=== PATIENT | male | born 1945 | race Caucasian/White ===

== ENCOUNTER 2017-04-06 08:36 | Inpatient (IN) | payer MEDICARE, BC ==
[2017-04-06] VITALS (31 sets, daily range): BP systolic 110–139; BP diastolic 52–78; PULSE 48–100; RESP 16–40; Ht 170.2 cm; Wt 65.3 kg
[~2017-04-06] VITALS: Ht 170.2 cm; Wt 65.3 kg
[2017-04-06] MEDS ORDERED: NIAC1000 PO (09:06)
[2017-04-06] MEDS ORDERED: LEVO137T24 PO (09:07)
[2017-04-06] MEDS ORDERED: TEST75GE TD (09:08)
[2017-04-06] MEDS ORDERED: LACTATED RINGER'S 1,000 ML IV* SCH (09:30)
[2017-04-06] MEDS ORDERED: CEFAZOLIN 2 GM/50 ML (PMX) 50 ML IVPB SCH (09:30)
[2017-04-06] MEDS ORDERED: TRAM50TA2 PO (09:50)
[2017-04-06] MEDS ORDERED: SURGIFOAM POWDER 1 GM KIT ONE (11:57)
[2017-04-06] MEDS ORDERED: GELATIN SIZE 100 SPONGE ONE (11:57)
[2017-04-06] MEDS ORDERED: CA CHLORIDE 10% 10 ML SYRINGE ONE (11:58)
[2017-04-06] MEDS ORDERED: THROMBIN 5000 UNIT VIAL ONE (11:58)
[2017-04-06] MEDS ORDERED: POLYMYXIN/BACITRACIN 1L IRRIG ONE (11:58)
[2017-04-06] MEDS ORDERED: BUPIVACAINE 0.25%/EPI (SDV) 30 ML INJ ONE (11:58)
--- NOTE | 2017-04-06 12:38 | HPN ---
Date/Time of Note Date/Time of Note DATE: 04/06/17 TIME: 12:37 Interval H&P Admission Note Pt. seen H&P reviewed: No system changes JULIA POTTER PA-C Apr 06, 2017 12:38
[2017-04-06] MEDS ORDERED: FENTAnyl 50 MCG/ML VIAL ONE ×2 (12:43→13:52)
[2017-04-06] MEDS ORDERED: LABETALOL HCL 20MG INJ ONE (13:10)
[2017-04-06] MEDS ORDERED: METOCLOPRAMIDE 10 MG INJ IV PRN (13:30)
[2017-04-06] MEDS ORDERED: HYDROmorphONE (0.2 MG/ML) 10ML SYG IV PRN ×3 (13:30)
[2017-04-06] MEDS ORDERED: MEPERIDINE 25 MG INJ IV PRN (13:30)
[2017-04-06] MEDS ORDERED: FENTAnyl 50 MCG/ML VIAL IV PRN (13:30)
[2017-04-06] MEDS ORDERED: hydrALAzine 20 MG INJ IV PRN (13:30)
[2017-04-06] MEDS ORDERED: LABETALOL HCL 20MG INJ IV PRN (13:30)
[2017-04-06] MEDS ORDERED: ONDANSETRON 4 MG INJ IV PRN ×2 (13:30→14:30)
[2017-04-06] MEDS ORDERED: DIPHENHYDRAMINE 50 MG INJ IV PRN ×2 (13:30→14:30)
[2017-04-06] MEDS ORDERED: SUCCINYLCHOLINE CHLORIDE 100 MG/5 ML SYG IV ONE (14:15)
[2017-04-06] MEDS ORDERED: ROCURONIUM 50 MG INJ ONE (14:15)
[2017-04-06] MEDS ORDERED: NEOSTIGMINE 3 MG/3 ML SYRINGE ONE (14:15)
[2017-04-06] MEDS ORDERED: LIDOCAINE 2% (SDV) 5 ML INJ ONE (14:15)
[2017-04-06] MEDS ORDERED: CEFAZOLIN 1 GM INJ ONE (14:15)
[2017-04-06] MEDS ORDERED: PROPOFOL 40 ML ONE (14:15)
[2017-04-06] MEDS ORDERED: GLYCOPYRROLATE 0.4 MG INJ ONE (14:15)
[2017-04-06] MEDS ORDERED: CEPASTAT LOZENGE MT PRN (14:30)
[2017-04-06] MEDS ORDERED: CEFAZOLIN 1 GM/50 ML (PMX) 50 ML IVPB SCH (14:30)
[2017-04-06] MEDS ORDERED: BISACODYL 10 MG SUPP PR PRN (14:30)
[2017-04-06] MEDS ORDERED: NALOXONE (0.4 MG/ML) INJ IV PRN (14:30)
[2017-04-06] MEDS ORDERED: ACETAMINOPHEN 325 MG TAB PO PRN (14:30)
[2017-04-06] MEDS ORDERED: AL HYDROX/MG HYDROX/SIMETH 30 ML CUP PO PRN (14:30)
[2017-04-06] MEDS ORDERED: ZOLPIDEM 5 MG TAB PO PRN (14:30)
[2017-04-06] MEDS ORDERED: CYCLOBENZAPRINE 10 MG TAB PO PRN (14:30)
[2017-04-06] MEDS ORDERED: HYDROmorphONE 1 MG/ML SYG IV PRN (14:30)
--- NOTE | 2017-04-06 14:31 | OPR ---
Date/Time of Note Date/Time of Note DATE: 04/06/17 TIME: 14:30 Operative Report Preoperative Diagnosis L4-5 HNP Postoperative Diagnosis L4-5 hnp Operation/Procedure Performed l4-5 extrafor discectomy Surgeon: GRISEL QUINTANILLA MD ophthalmology assistant: JULIA POTTER PA-C Anesthesia: general Estimated Blood Loss: 10 - 50 ml's Specimens disk Complications: None GRISEL QUINTANILLA MD Apr 06, 2017 14:31
[2017-04-06] MEDS: HYDROmorphONE 0.2 MG/ML PCA IV SCH (14:46)
[2017-04-06] MEDS ORDERED: ALBUTEROL/IPRATROPIUM (NEB) 3 ML AMP HHN PRN (15:00)
--- NOTE | 2017-04-06 15:24 | RADRPT ---
PROCEDURE: XR Chest. CLINICAL INDICATION: Cough. TECHNIQUE: Single frontal view of the chest was obtained. COMPARISON: None FINDINGS: The soft tissues are normal. There are degenerative osteophytes in the thoracic spine. The left ve ntricle is mildly enlarged. The cardiomediastinal silhouette and hilar structures are normal. The p ulmonary vasculature is normal. There are vascular calcifications in the aortic arch. There is patc hy infiltrate and atelectasis in the bases of the lungs. The left costophrenic angle is blunted. IMPRESSION: 1. There are areas of atelectasis and patchy infiltrates in the bases of the lungs suspicious for pn eumonia. 2. There is a small left pleural effusion. RPTAT:AAJJ Physician Abdi Date Time Electronically viewed and signed by Shad Bermudez Physician on 04/06/2017 15:24 /
--- NOTE | 2017-04-06 15:51 | RADRPT ---
PROCEDURE: Lateral view of the lumbosacral spine. CLINICAL INDICATION: Intraoperative planning. TECHNIQUE: A cross-table lateral view of the lumbar spine was performed. COMPARISON: No. FINDINGS: There is a needle along the lower 1/4 of the L3 spinous process. There is a second needle abutting the superior surface of the L5 spinous process. There is disk space narrowing and vacuum disk phenomenon at L2-3, L3-4 and L4-5. There is generaliz ed disk space narrowing at L5-S1. There is mild grade 1 anterolisthesis of L3 and L4. There is mil d anterolisthesis of L2 and L3. IMPRESSION: 1. Intraoperative radiographs with metal needles along the lower 1/4 of the L3 spinous process and abutting the superior surface of the L5 spinous process. 2. Osteoarthritis of the lumbar spine. RPTAT:AAJJ Physician Abdi Date Time Electronically viewed and signed by Physician Abdi on 04/06/2017 15:51 RAMY/
--- NOTE | 2017-04-06 15:52 | OPR ---
DATE OF OPERATION: 04/06/2017 PREOPERATIVE DIAGNOSIS: Right L4-L5 extraforaminal disk extrusion with radiculopathy. POSTOPERATIVE DIAGNOSIS: Right L4-L5 extraforaminal disk extrusion with radiculopathy. OPERATION PERFORMED: 1. Right L4-L5 extraforaminal microdiskectomy. 2. Lateral localizing film x2. 3. Use of operative microscope. 4. Intraoperative neuromonitoring (1.5 hours). 5. Epidural injection via catheter. PRIMARY SURGEON: Wilfredo Nix MD MINI BAR ATTENDANT: DENIA Carney NEED FOR HATCHERY EMPLOYEE: During this spinal surgical procedure, my warehouse assistant was used to retrac t and protect the spinal nerves and dural sac. My warehouse assistant also employed the suction catheters to evacuate blood from the surgical field to improve visualization of the neural structures. The eusebia tant was medically necessary to facilitate the completion of the surgery in a safe and expeditious m gary. [facility] [place] regulations, as well as hospital bylaws, preclude the use of non-license d health care personnel, such as operating room technicians, to perform these functions. FINDINGS: The patient had a large extruded extraforaminal disk herniation causing nerve root compro mise. ESTIMATED BLOOD LOSS: Less than 30 mL DRAINS: None. SPECIMENS: L4-5 disk. COMPLICATIONS OF PROCEDURES: None. ANESTHESIOLOGIST: Dr. Langley TYPE OF ANESTHESIA: General. INDICATIONS FOR PROCEDURE: This is a 72-year-old gentleman with right lumbosacral radiculopathy in the setting of a right-sided far lateral disk extrusion at L4-L5. He failed nonoperative measures; therefore, I recommended proceeding with the above-mentioned surgery. Preoperatively, we discussed the risks, benefits, and alternatives. He understood and wished to proceed. DESCRIPTION OF PROCEDURE IN DETAIL: The patient was identified in the preoperative holding area, [facility], taken to the operating room, where he was successfully placed under general an esthesia. Neuromonitoring leads were placed, sequential compressive devices were applied. Neuromon itoring was utilized during the procedure for 1.5 hours to include SSEP, MEP, and EMG. This was per formed by [employer]. Start time was 1 p.m. Closure time was 2:30 p.m. The patient was plac ed on the operative table in prone position over a Harley frame. All bony prominences were well pad ded. The back was then prepped and draped in the usual sterile fashion. Spinal needles were placed and lateral localizing films obtained to confirm the correct levels. Once this was confirmed, I in jected the skin and subcutaneous tissue with 0.25% Marcaine and epinephrine. An incision was then m ember over the L4-5 level. Incision was taken down to dorsal fascia which was incised with Bovie caut prieto. I then subperiosteally dissected the L4 lamina. Janette retractor was placed. Kerrison was pl aced in what was felt to be the L4 lamina and repeat lateral films obtained to confirm the correct l evels. Once this was confirmed, a right-sided hemilaminotomy was performed. Partial facetectomies were performed. Ligamentum flavum was then sharply dissected. Crystals from previous epidural inje ctions were encountered and removed. I decompressed the dura and neural foramina. Next, I identifi ed the annulus and performed an extraforaminal diskectomy. Large extruded fragments were identified . I then entered the disk space and removed medial fragments as well. Once this was done, all nerv e signals returned to normal. I irrigated the wound. Valsalva maneuver was performed, and there wa s no leak of CSF. Epidural was passed through which I injected 100 mcg of fentanyl. Anesthesiology amos peripheral blood which was spun down using the WaveConnex device and took the platelet-poor plas ma and mixed this with thrombin and injected this over the dura for hemostatic purposes. The retrac tors were removed, and I closed the deep fascia with #1 Vicryl stitch. I closed subcutaneous tissue with 2-0 Vicryl stitch. A 4-0 Monocryl closure was then performed. Microscope was taken off the f ield. Dermabond was applied. The patient was then awakened from anesthesia and taken to recovery r oom in stable condition. Lap, sponge, and instrument counts were correct x2. There were no apparen t complications during the procedure. The patient will be admitted to the orthopedic [facility] for routine postoperative care to include pain c ontrol, neurovascular checks, antibiotics, and physical therapy. Dictated By: WILFREDO HERNÁNDEZ/BAYRON Conf#: [id number] DID#: [id number]
--- NOTE | 2017-04-06 16:12 | RADRPT ---
PROCEDURE: Intraoperative XR. CLINICAL INDICATION: Intraoperative radiograph during L4-5 microdiskectomy. TECHNIQUE: Spot intraoperative lateral lumbar x-ray image was provided. The images were reviewed on a high-resolution PACS workstation. COMPARISON: None available FINDINGS: Spot intraoperative lateral all lumbar view were provided during L4-5 microdiskectomy. The images d emonstrate without instrumentation at the level of L4-5. There are anterior osteophytes throughout the lumbar spine with severe disc-space narrowing at L3-4 and mild to moderate disc-space narrowing at L4-5 and L5-S1. IMPRESSION: 1. Spot intraoperative lateral lumbar view during L4-5 microdiskectomy were provided. 2. Please see operative report of the same day for further information. RPTAT: HGAS .Michael Engel MD, Date Time Electronically viewed and signed by .Michael Engel MD, on 04/06/2017 16:12 .S/
--- NOTE | 2017-04-06 17:11 | CONS ---
DATE OF ADMISSION: 04/06/2017 DATE OF CONSULTATION: 04/06/2017 Thank you, Dr. Nix, for asking me to participate in the medical management of this patient. REASON FOR CONSULTATION: Cough, history of asthma, hyperlipidemia, hypothyroidism. HISTORY OF PRESENT ILLNESS: This patient is now in the postanesthesia recovery room after undergoin g a lumbar spine surgery by Dr. Nix. The patient is awake. He does have a cough which he jerome d he had prior to this surgery. The patient said that he was seen by his primary care physician, Dr Abimbola Kauffman, on 03/31/2017. He said, at that time, he did not have a cough. He had a norm al chest x-ray. Then, the patient said on 04/02/2017 he developed a cough which has continued. The cough has been a dry cough. The patient says that he does have a history of asthma for which he ta kes inhalers when he goes hiking. The patient does not have any productive sputum. He has not had any fevers or chills. PAST MEDICAL HISTORY: Remarkable for hyperlipidemia, hypothyroidism, asthma, hypogonadism, and blake roesophageal reflux disease. CURRENT MEDICATIONS: Include 1. AndroGel. 2. Synthroid 137 mg a day. 3. Niacin 1000 mg a day. 4. Tramadol for pain. SOCIAL HISTORY: The patient is a former smoker, has not smoked in 15 years. ALLERGIES: HE HAS NO KNOWN DRUG ALLERGIES. PHYSICAL EXAMINATION: GENERAL: At this time reveals a well-developed man who does have a cough. VITAL SIGNS: Pulse of 80, blood pressure 121/58, O2 saturation 96% on 2 liter nasal cannula. HEENT: HEAD: Normocephalic. EYES: Extraocular muscles intact. NOSE AND MOUTH: Normal. NECK: Supple, no neck vein distention. LUNGS: Clear to auscultation. HEART: Regular rhythm. No murmurs, gallops, or rubs. ABDOMEN: Soft, nontender, no masses or megaly. EXTREMITIES: No peripheral edema. IMPRESSION: This 72-year-old man is now in the postanesthesia recovery room after undergoing a lumb ar spine surgery for an L4-L5 herniated nucleus pulposus. The patient underwent a right L4-L5 extra foraminal microdiscectomy. The patient postoperatively does have a dry cough. He says that he has had this since 04/02/2017. It has been a nonproductive cough. He has not had any fevers or chills. He had a normal chest x-ray on 03/31/2017. The patient says he does have a history of asthma but at this time is not wheezing. PLAN: 1. I will order a stat portable chest x-ray. 2. I will start the patient on breathing treatments with albuterol and Atrovent. 3. Resume routine medications. 4. Postop lumbar spine surgery protocol. 5. Check labs in the morning. 6. I will follow the patient along with you. Dictated By: AMY TUCKER MD, ND/BAYRON Conf#: [id number] DID#: [id number]
[2017-04-06] MEDS: D5W-0.45 NACL + KCL 20 MEQ 1,000 ML IV SCH ×2 (19:19→23:54)
[2017-04-06] MEDS: CEFAZOLIN 1 GM/50 ML (PMX) 50 ML IVPB SCH (20:39)
[2017-04-06] MEDS: DOCUSATE SODIUM 100 MG CAP PO SCH (22:28)
[2017-04-06] MEDS: LEVOFLOXACIN 500MG/D5W (PMX) 100 ML IVPB SCH (22:28)
[2017-04-07 00:45] VITALS: BP 114/67; PULSE 87; RESP 16
[2017-04-07] MEDS: HYDROmorphONE 0.2 MG/ML PCA IV SCH (00:52)
[2017-04-07 01:45] VITALS: BP 109/56; PULSE 86; RESP 16
[2017-04-07] MEDS: CEFAZOLIN 1 GM/50 ML (PMX) 50 ML IVPB SCH ×2 (04:38→13:29)
[2017-04-07 06:29] LABS: ADD SCAN DIFF NO
[2017-04-07] MEDS: LEVOTHYROXINE 137 MCG TAB PO SCH (06:32)
[2017-04-07 06:38] LABS: BASOPHILS % 0.2 % (0.0-2.0); EOSINOPHILS # 0.2 10^3/ul (0.0-0.5); EOSINOPHILS % 1.2 % (0.0-7.0); HEMATOCRIT 35.2 % (42.0-52.0); HEMOGLOBIN 11.7 g/dl (14.0-18.0); LYMPHOCYTES # 1.4 10^3/ul (0.8-2.9); LYMPHOCYTES % 11.4 % (15.0-51.0); MEAN CORPUSCULAR HEMOGLOBIN 32.5 pg (29.0-33.0); MEAN CORPUSCULAR HGB CONC 33.2 g/dl (32.0-37.0); MEAN CORPUSCULAR VOLUME 97.8 fl (82.0-101.0); MEAN PLATELET VOLUME 9.3 fl (7.4-10.4); MONOCYTE # 1.2 10^3/ul (0.3-0.9); MONOCYTES % 9.7 % (0.0-11.0); NEUTROPHIL # 9.6 10^3/ul (1.6-7.5); NEUTROPHILS % 76.9 % (39.0-77.0); PLATELET COUNT 240 10^3/UL (140-415); RED CELL DISTRIBUTION WIDTH 13.8 % (11.5-14.5); WHITE BLOOD COUNT 12.4 10^3/ul (4.8-10.8)
[2017-04-07 07:00] VITALS: BP 134/65; RESP 18
[2017-04-07 07:22] LABS: CREATININE 1.14 mg/dl (0.61-1.24); MAGNESIUM 1.7 mg/dl (1.7-2.5); POTASSIUM 4.2 mmol/L (3.5-5.1)
--- NOTE | 2017-04-07 08:10 | CONS ---
Date/Time of Note Date/Time of Note DATE: 04/07/17 TIME: 08:08 Assessment/Plan Assessment/Plan Additional Assessment/Plan 1. Doing well post lumbar back surgery. 2. Low grade temp, abnl cxr, prob atelectasis, will rx for pneumonia nonetheless with iv levaquin, bronchodilators and mucolytics. 3. Hypothyroidism, on replacement. Consultation Date/Type/Reason Admit Date/Time Apr 06, 2017 at 08:36 Initial Consult Date Detailed Summary Respiratory: cough (mild and not productive) Cardiovascular: No chest pain Gastrointestinal: no complaints Genitourinary: no complaints Musculoskeletal: back pain (mild) Exam/Review of Systems Vital Signs Vitals Vital Signs Date Time Temp Pulse Resp B/P Pulse Ox O2 Delivery O2 Flow Rate FiO2 04/07/17 07:00 99.9 87 18 134/65 96 04/07/17 01:45 Nasal Cannula 2.0 Intake and Output 04/06/17 04/06/17 04/07/17 15:00 23:00 07:00 Intake Total 1600 ml 450 ml 2030 ml Output Total 5 ml 1050 ml Balance 1595 ml 450 ml 980 ml Exam Neck: No jvd Respiratory: clear to auscultation Cardiovascular: regular rate and rhythm Gastrointestinal: soft Extremities: No edema (and no calf tend) Results Result Diagram: 04/07/17 0506 04/07/17 0306 Results 24 hrs Laboratory Tests Test 04/07/17 03:06 04/07/17 05:06 04/07/17 06:26 Sodium Level 133 L Potassium Level 4.2 Chloride Level 99 Carbon Dioxide Level 27 Anion Gap 11 Blood Urea Nitrogen 14 Creatinine 1.14 Glucose Level 90 Calcium Level 9.0 Magnesium Level 1.7 White Blood Count 12.4 H Red Blood Count 3.60 L Hemoglobin 11.7 L Hematocrit 35.2 L Mean Corpuscular Volume 97.8 Mean Corpuscular Hemoglobin 32.5 Mean Corpuscular Hemoglobin Concent 33.2 Red Cell Distribution Width 13.8 Platelet Count 240 Mean Platelet Volume 9.3 Neutrophils % 76.9 Lymphocytes % 11.4 L Monocytes % 9.7 Eosinophils % 1.2 Basophils % 0.2 Nucleated Red Blood Cells % 0.0 Neutrophils # 9.6 H Lymphocytes # 1.4 Monocytes # 1.2 H Eosinophils # 0.2 Basophils # 0.0 Nucleated Red Blood Cells # 0.0 Lab Scanned Report REFERENCE LAB Medications Medications Current Medications Potassium Chloride/Dextrose/ Sod Cl (D5-1/2ns + KCl 20 Meq) 1,000 ml @ 100 mls/ hr Q10H IV Last administered on 04/06/17 19:19; Admin Dose 100 MLS/HR; Start 04/06/17 at 14:25 Acetaminophen/ Hydrocodone Bitart ([place] (10/325)) 1 tab Q4H PRN PO PAIN LEVEL 1-5; Start 04/07/17 at 10:00 Acetaminophen/ Hydrocodone Bitart ([place] (10/325)) 2 tab Q4H PRN PO PAIN LEVEL 6-10; Start 04/07/17 at 10:00 Hydromorphone HCl (Dilaudid) 0.2 mg Q1H PRN IV BREAKTHROUGH PAIN Last administered on 04/06/17 20:26; Admin Dose 0.2 MG; Start 04/06/17 at 14:30 Ondansetron HCl (Zofran Inj) 4 mg Q6H PRN IV NAUSEA AND/OR VOMITING; Start at 14:30 Bisacodyl (Dulcolax Supp) 10 mg DAILY PRN [place] CONSTIPATION; Start 04/06/17 at 14 :30 Docusate Sodium (Colace) 100 mg BID PO Last administered on 04/06/17 22:28; Admin Dose 100 MG; Start 04/06/17 at 21:00 Al Hydrox/Mg Hydrox/Simethicone (Mag-Al Plus) 15 ml Q6H PRN PO CONSTIPATION/ DYSPEPSIA; Start 04/06/17 at 14:30 Acetaminophen (Tylenol Tab) 650 mg Q4H PRN PO KRISHNAN OR TEMP GREATER THAN 101.3F; Start 04/06/17 at 14:30 Cyclobenzaprine HCl (Flexeril) 10 mg TID PRN PO MUSCLE SPASMS Last administered on 04/06/17 23:34; Admin Dose 10 MG; Start 04/06/17 at 14:30 Phenol (Cepastat Lozenge) 1 lozenge PRN PRN [place] SORE THROAT; Start 04/06/17 at 14:30 Diphenhydramine HCl (Benadryl) 25 mg Q6H PRN IV ITCHING; Start 04/06/17 at 14: 30 Naloxone HCl (Narcan) 0.2 mg Q2M PRN IV RR 8 BREATHS/MIN OR LESS; Start at 14:30 Hydromorphone HCl (Dilaudid PLASTIC WELDING MACHINE OPERATOR) PLASTIC WELDING MACHINE OPERATOR to be started in PACU Q4PCA IV Last administered on 04/07/17 00:52; Admin Dose 6 MG; Start 04/06/17 at 14:30; Stop 04/07/17 at 10:00 Miscellaneous Information 1. Hold PLASTIC WELDING MACHINE OPERATOR at 1,000... PLASTIC WELDING MACHINE OPERATOR IV ; Start 04/06/17 at 14: 30; Stop 04/07/17 at 10:00 Cefazolin Sodium 50 ml @ 100 mls/hr Q8H IVPB Last administered on 04/07/17 04 :38; Admin Dose 100 MLS/HR; Start 04/06/17 at 21:00; Stop 04/07/17 at 13:29 Levofloxacin/ Dextrose (Levaquin 500mg/ D5W 100 ml (Pmx)) 100 ml @ 100 mls/hr Q24H IVPB Last administered on 04/06/17 22:28; Admin Dose 100 MLS/HR; Start at 22:00 REMBERTO CA MD Apr 07, 2017 08:10
[2017-04-07] MEDS: DOCUSATE SODIUM 100 MG CAP PO SCH ×2 (08:11→21:48)
[2017-04-07] MEDS: D5W-0.45 NACL + KCL 20 MEQ 1,000 ML IV SCH ×2 (10:25→20:25)
--- NOTE | 2017-04-07 10:38 | PN ---
Date/Time of Note Date/Time of Note DATE: 04/07/17 TIME: 10:36 Assessment/Plan Lines/Catheters IV Catheter Type (from Nrsg): Peripheral IV Vega in Place (from Nrsg): No Assessment/Plan Assessment/Plan s/p lumbar microdiscectomy CXR suggests atelectasis vs. PNA - abx and tx per Dr. Poe continue PT, ambulate routine care Subjective 24 Hr Interval Summary pt reports improvement in right leg pain c/o post-operative back discomfort Exam/Review of Systems Vital Signs Vitals Vital Signs Date Time Temp Pulse Resp B/P Pulse Ox O2 Delivery O2 Flow Rate FiO2 04/07/17 07:00 99.9 87 18 134/65 96 04/07/17 01:45 Nasal Cannula 2.0 Intake and Output 04/06/17 04/06/17 04/07/17 15:00 23:00 07:00 Intake Total 1600 ml 450 ml 2030 ml Output Total 5 ml 1050 ml Balance 1595 ml 450 ml 980 ml Exam Free Text/Dictation NVID incision C/D/I Results Result Diagram: 04/07/17 0506 04/07/17 0306 JULIA POTTER PA-C Apr 07, 2017 10:37
[2017-04-07] MEDS: HYDROCODONE/APAP (10/325) TAB PO PRN ×4 (10:51→21:49)
[2017-04-07] MEDS: GUAIFENESIN/DM (SR) TAB PO SCH ×2 (11:52→21:48)
--- NOTE | 2017-04-07 12:34 | CONS ---
Date/Time of Note Date/Time of Note DATE: 04/07/17 TIME: 12:32 Consultation Date/Type/Reason Admit Date/Time Apr 06, 2017 at 08:36 Initial Consult Date 04/07/17 Type of Consultation: Anesthesiology Reason for Consultation follow up 24 HR Interval Summary Free Text/Dictation Pt seen and examined at bedside is POD#1 for lumbar microdiscectomy. Pt states his pain is controlled adequately and is recovering well with PT. No N/V/D. Will follow. Constitutional: improved, no complaints Exam/Review of Systems Vital Signs Vitals Vital Signs Date Time Temp Pulse Resp B/P Pulse Ox O2 Delivery O2 Flow Rate FiO2 04/07/17 07:00 99.9 87 18 134/65 96 04/07/17 01:45 Nasal Cannula 2.0 Intake and Output 04/06/17 04/06/17 04/07/17 15:00 23:00 07:00 Intake Total 1600 ml 450 ml 2030 ml Output Total 5 ml 1050 ml Balance 1595 ml 450 ml 980 ml Results Result Diagram: 04/07/17 0506 04/07/17 0306 Results 24 hrs Laboratory Tests Test 04/07/17 03:06 04/07/17 05:06 04/07/17 06:26 Sodium Level 133 L Potassium Level 4.2 Chloride Level 99 Carbon Dioxide Level 27 Anion Gap 11 Blood Urea Nitrogen 14 Creatinine 1.14 Glucose Level 90 Calcium Level 9.0 Magnesium Level 1.7 White Blood Count 12.4 H Red Blood Count 3.60 L Hemoglobin 11.7 L Hematocrit 35.2 L Mean Corpuscular Volume 97.8 Mean Corpuscular Hemoglobin 32.5 Mean Corpuscular Hemoglobin Concent 33.2 Red Cell Distribution Width 13.8 Platelet Count 240 Mean Platelet Volume 9.3 Neutrophils % 76.9 Lymphocytes % 11.4 L Monocytes % 9.7 Eosinophils % 1.2 Basophils % 0.2 Nucleated Red Blood Cells % 0.0 Neutrophils # 9.6 H Lymphocytes # 1.4 Monocytes # 1.2 H Eosinophils # 0.2 Basophils # 0.0 Nucleated Red Blood Cells # 0.0 Lab Scanned Report REFERENCE LAB Medications Medications Current Medications Potassium Chloride/Dextrose/ Sod Cl (D5-1/2ns + KCl 20 Meq) 1,000 ml @ 100 mls/ hr Q10H IV Last administered on 04/06/17t 19:19; Admin Dose 100 MLS/HR; Start 04/06/17 at 14:25 Acetaminophen/ Hydrocodone Bitart ([place] (325)) 1 tab Q4H PRN PO PAIN LEVEL 1-5 Last administered on 04/07/17 11:53; Admin Dose 1 TAB; Start 04/07/17 at 10 :00 Acetaminophen/ Hydrocodone Bitart ([place] (325)) 2 tab Q4H PRN PO PAIN LEVEL 6-10; Start 04/07/17 at 10:00 Hydromorphone HCl (Dilaudid) 0.2 mg Q1H PRN IV BREAKTHROUGH PAIN Last administered on 04/06/17 20:26; Admin Dose 0.2 MG; Start 04/06/17 at 14:30 Ondansetron HCl (Zofran Inj) 4 mg Q6H PRN IV NAUSEA AND/OR VOMITING; Start at 14:30 Bisacodyl (Dulcolax Supp) 10 mg DAILY PRN [place] CONSTIPATION; Start 04/06/17 at 14 :30 Docusate Sodium (Colace) 100 mg BID PO Last administered on 04/07/17 08:11; Admin Dose 100 MG; Start 04/06/17 at 21:00 Al Hydrox/Mg Hydrox/Simethicone (Mag-Al Plus) 15 ml Q6H PRN PO CONSTIPATION/ DYSPEPSIA; Start 04/06/17 at 14:30 Acetaminophen (Tylenol Tab) 650 mg Q4H PRN PO KRISHNAN OR TEMP GREATER THAN 101.3F; Start 04/06/17 at 14:30 Cyclobenzaprine HCl (Flexeril) 10 mg TID PRN PO MUSCLE SPASMS Last administered on 04/06/17 23:34; Admin Dose 10 MG; Start 04/06/17 at 14:30 Phenol (Cepastat Lozenge) 1 lozenge PRN PRN MT SORE THROAT; Start 04/06/17 at 14:30 Diphenhydramine HCl (Benadryl) 25 mg Q6H PRN IV ITCHING; Start 04/06/17 at 14: 30 Naloxone HCl 0.2 mg 0.2 mg Q2M PRN IV RR 8 BREATHS/MIN OR LESS; Start 04/06/17 at 14:30 Cefazolin Sodium 50 ml @ 100 mls/hr Q8H IVPB Last administered on 04/07/17 04 :38; Admin Dose 100 MLS/HR; Start 04/06/17 at 21:00; Stop 04/07/17 at 13:29 Levofloxacin/ Dextrose (Levaquin 500mg/ D5W 100 ml (Pmx)) 100 ml @ 100 mls/hr Q24H IVPB Last administered on 04/06/17 22:28; Admin Dose 100 MLS/HR; Start at 22:00 Guaifenesin/ Dextromethorphan (Mucinex Dm) 1 tab BID PO Last administered on 11:52; Admin Dose 1 TAB; Start 04/07/17 at 09:00 MIKEY ÁLVAREZ Apr 07, 2017 12:34
[2017-04-07] MEDS: ALBUTEROL/IPRATROPIUM (NEB) 3 ML AMP HHN SCH ×2 (14:01→20:58)
[2017-04-07 20:02] VITALS: BP 148/78; RESP 20
[2017-04-07] MEDS: LEVOFLOXACIN 500MG/D5W (PMX) 100 ML IVPB SCH (21:48)
[2017-04-08] MEDS: ALBUTEROL/IPRATROPIUM (NEB) 3 ML AMP HHN SCH ×2 (01:49→08:00)
[2017-04-08] MEDS: D5W-0.45 NACL + KCL 20 MEQ 1,000 ML IV SCH (05:59)
[2017-04-08 06:03] LABS: ADD SCAN DIFF NO
[2017-04-08 06:10] LABS: BASOPHILS % 0.1 % (0.0-2.0); EOSINOPHILS # 0.2 10^3/ul (0.0-0.5); EOSINOPHILS % 2.8 % (0.0-7.0); HEMATOCRIT 34.1 % (42.0-52.0); HEMOGLOBIN 11.5 g/dl (14.0-18.0); LYMPHOCYTES # 1.2 10^3/ul (0.8-2.9); LYMPHOCYTES % 13.6 % (15.0-51.0); MEAN CORPUSCULAR HEMOGLOBIN 32.9 pg (29.0-33.0); MEAN CORPUSCULAR HGB CONC 33.7 g/dl (32.0-37.0); MEAN CORPUSCULAR VOLUME 97.4 fl (82.0-101.0); MEAN PLATELET VOLUME 9.1 fl (7.4-10.4); NEUTROPHIL # 6.3 10^3/ul (1.6-7.5); NEUTROPHILS % 71.9 % (39.0-77.0); PLATELET COUNT 224 10^3/UL (140-415); RED CELL DISTRIBUTION WIDTH 13.7 % (11.5-14.5); WHITE BLOOD COUNT 8.7 10^3/ul (4.8-10.8)
[2017-04-08] MEDS: LEVOTHYROXINE 137 MCG TAB PO SCH (06:10)
[2017-04-08] MEDS: HYDROCODONE/APAP (10/325) TAB PO PRN ×2 (06:35→12:35)
[2017-04-08 06:52] LABS: ALBUMIN 3.3 g/dl (3.3-4.9); ALBUMIN/GLOBULIN RATIO 1.37; BILIRUBIN,INDIRECT 0.3 mg/dl (0-1.1); BILIRUBIN,TOTAL 0.3 mg/dl (0.2-1.3); CALCIUM 9.1 mg/dl (8.4-10.2); CREATININE 1.07 mg/dl (0.61-1.24); POTASSIUM 4.1 mmol/L (3.5-5.1); TOTAL PROTEIN 5.7 g/dl (6.1-8.1)
[2017-04-08 08:04] VITALS: BP 136/76; RESP 19
[2017-04-08] MEDS: GUAIFENESIN/DM (SR) TAB PO SCH (08:30)
[2017-04-08] MEDS: DOCUSATE SODIUM 100 MG CAP PO SCH (08:30)
--- NOTE | 2017-04-08 08:55 | CONS ---
Date/Time of Note Date/Time of Note DATE: 04/08/17 TIME: 08:52 Assessment/Plan Assessment/Plan Additional Assessment/Plan 1.Doing well post up back surgery. 2.Clinically doing well re--early pneumonia vs atelectasis/bronchitis, will cont levaquin additional 7d, to continue IS and asked him to follow up with his reg MD early next week cxr is pending Consultation Date/Type/Reason Admit Date/Time Apr 06, 2017 at 08:36 Type of Consultation: Anesthesiology Detailed Summary Respiratory: cough (is mild and not productive) Cardiovascular: No chest pain Gastrointestinal: no complaints Genitourinary: no complaints Musculoskeletal: back pain (moderate, less then yesterday) Exam/Review of Systems Vital Signs Vitals Vital Signs Date Time Temp Pulse Resp B/P Pulse Ox O2 Delivery O2 Flow Rate FiO2 04/08/17 08:04 98.7 89 19 136/76 98 04/07/17 20:59 21 04/07/17 20:00 Nasal Cannula 2.0 Intake and Output 04/07/17 04/07/17 04/08/17 15:00 23:00 07:00 Intake Total 175 ml 1060 ml 900 ml Output Total 1550 ml 850 ml Balance 175 ml -490 ml 50 ml Exam Neck: No jvd Respiratory: other (few rhonhci bilat and no wheezing) Cardiovascular: regular rate and rhythm Extremities: No edema (and no calf tend bilat) Results Result Diagram: 04/08/17 0435 04/08/17 0435 Results 24 hrs Laboratory Tests Test 04/08/17 04:35 White Blood Count 8.7 # Red Blood Count 3.50 L Hemoglobin 11.5 L Hematocrit 34.1 L Mean Corpuscular Volume 97.4 Mean Corpuscular Hemoglobin 32.9 Mean Corpuscular Hemoglobin Concent 33.7 Red Cell Distribution Width 13.7 Platelet Count 224 Mean Platelet Volume 9.1 Neutrophils % 71.9 Lymphocytes % 13.6 L Monocytes % 11.0 Eosinophils % 2.8 Basophils % 0.1 Nucleated Red Blood Cells % 0.0 Neutrophils # 6.3 Lymphocytes # 1.2 Monocytes # 1.0 H Eosinophils # 0.2 Basophils # 0.0 Nucleated Red Blood Cells # 0.0 Sodium Level 138 Potassium Level 4.1 Chloride Level 104 Carbon Dioxide Level 25 Anion Gap 13 Blood Urea Nitrogen 13 Creatinine 1.07 Glucose Level 107 Calcium Level 9.1 Total Bilirubin 0.3 Direct Bilirubin 0.00 Indirect Bilirubin 0.3 Aspartate Amino Transf (AST/SGOT) 37 Alanine Aminotransferase (ALT/SGPT) 40 Alkaline Phosphatase 214 H Total Protein 5.7 L Albumin 3.3 Globulin 2.40 Albumin/Globulin Ratio 1.37 Medications Medications Current Medications Potassium Chloride/Dextrose/ Sod Cl (D5-1/2ns + KCl 20 Meq) 1,000 ml @ 100 mls/ hr Q10H IV Last administered on 04/06/17 19:19; Admin Dose 100 MLS/HR; Start 04/06/17 at 14:25 Acetaminophen/ Hydrocodone Bitart ([place] (10325)) 1 tab Q4H PRN PO PAIN LEVEL 1-5 Last administered on 04/07/17 11:53; Admin Dose 1 TAB; Start 04/07/17 at 10 :00 Acetaminophen/ Hydrocodone Bitart ([place] (10325)) 2 tab Q4H PRN PO PAIN LEVEL 6-10 Last administered on 04/08/17 06:35; Admin Dose 2 TAB; Start 04/07/17 at 10:00 Hydromorphone HCl (Dilaudid) 0.2 mg Q1H PRN IV BREAKTHROUGH PAIN Last administered on 04/06/17 20:26; Admin Dose 0.2 MG; Start 04/06/17 at 14:30 Ondansetron HCl (Zofran Inj) 4 mg Q6H PRN IV NAUSEA AND/OR VOMITING; Start at 14:30 Bisacodyl (Dulcolax Supp) 10 mg DAILY PRN [place] CONSTIPATION; Start 04/06/17 at 14 :30 Docusate Sodium (Colace) 100 mg BID PO Last administered on 04/08/17 08:30; Admin Dose 100 MG; Start 04/06/17 at 21:00 Al Hydrox/Mg Hydrox/Simethicone (Mag-Al Plus) 15 ml Q6H PRN PO CONSTIPATION/ DYSPEPSIA; Start 04/06/17 at 14:30 Acetaminophen (Tylenol Tab) 650 mg Q4H PRN PO KRISHNAN OR TEMP GREATER THAN 101.3F; Start 04/06/17 at 14:30 Cyclobenzaprine HCl (Flexeril) 10 mg TID PRN PO MUSCLE SPASMS Last administered on 04/06/17 23:34; Admin Dose 10 MG; Start 04/06/17 at 14:30 Phenol (Cepastat Lozenge) 1 lozenge PRN PRN MT SORE THROAT; Start 04/06/17 at 14:30 Diphenhydramine HCl (Benadryl) 25 mg Q6H PRN IV ITCHING; Start 04/06/17 at 14: 30 Naloxone HCl 0.2 mg 0.2 mg Q2M PRN IV RR 8 BREATHS/MIN OR LESS; Start 04/06/17 at 14:30 Levofloxacin/ Dextrose (Levaquin 500mg/ D5W 100 ml (Pmx)) 100 ml @ 100 mls/hr Q24H IVPB Last administered on 04/07/17 21:48; Admin Dose 100 MLS/HR; Start at 22:00 Guaifenesin/ Dextromethorphan (Mucinex Dm) 1 tab BID PO Last administered on 08:30; Admin Dose 1 TAB; Start 04/07/17 at 09:00 REMBERTO CA MD Apr 08, 2017 08:55
--- NOTE | 2017-04-08 10:08 | RADRPT ---
PROCEDURE: XR Chest 1 View. CLINICAL INDICATION: Shortness of breath, postop. TECHNIQUE: AP view of the chest was obtained. COMPARISON: April 06, 2017 FINDINGS: The cardiomediastinal silhouette is within normal limits. Atelectasis is noted at the lung bases. T he lungs are hypoinflated. Atelectasis versus minimal focal infiltrates are seen in the right mid l kirstie. Osseous structures are intact. IMPRESSION: Atelectasis versus minimal focal infiltrates in the right mid lung. Hypoinflated lungs with atelectasis at the lung bases. RPTAT: AA .Daniel Brooke MD, Date Time Electronically viewed and signed by .Daniel Brooke MD, on 04/08/2017 10:08 .P/
--- NOTE | 2017-04-08 13:08 | DS ---
DATE OF ADMISSION: 04/06/2017 DATE OF DISCHARGE: 04/08/2017 ADMITTING DIAGNOSIS: Spinal stenosis. DISCHARGE DIAGNOSIS: Spinal stenosis. PROCEDURE: Patient taken to the operating room on 04/06/2017 underwent lumbar diskectomy. Postoper ative day 2, he was doing well from surgery, but a chest x-ray revealed possible atelectasis versus pneumonia. By postoperative day 2, he was deemed stable for discharge and cleared by Dr. Poe. [facility] was arranged with the undersigned. Dictated By: GRISEL QUINTANILLA MD BB/NTS Conf#: [id number] DID#: [id number]
== END 2017-04-08 13:49 | disposition home or self-care (01) | DRG 520 ==
LOC: REC 08:36 → MS1 21:54
PROVIDERS: ADMIT Specialist; ATTEND Specialist
PROC: 0SB20ZZ Excision of Lumbar Vertebral Disc, Open Approach (ICD-10-PCS; principal; 2017-04-06 12:00)
DX: M51.16 Intervertebral disc disorders with radiculopathy, lumbar region (principal); E03.9 Hypothyroidism, unspecified; M48.06 Spinal stenosis, lumbar region; R05 Cough; E78.5 Hyperlipidemia, unspecified; K21.9 Gastro-esophageal reflux disease without esophagitis; J45.909 Unspecified asthma, uncomplicated; Z87.891 Personal history of nicotine dependence
CPT/HCPCS: 71010; 72020; 80048; 80053; 83735; 84100; 85025; 86999; 88304; 94640; 94664; 97116; 97162; 97530; J0690; J1170; J1956; J2175; J2405; J2710; J3010; J7999